=== PATIENT | female | born 1980 | race African-American/Black ===

== ENCOUNTER 2016-07-17 13:14 | Emergency (ER) | payer MEDICAID ==
[~2016-07-17] VITALS: Ht 167.6 cm; Wt 62.5 kg
[2016-07-17] MEDS ORDERED: LIDOCAINE 1%, 20ML ONE (15:29)
[2016-07-17] MEDS ORDERED: LIDOCAINE 1%, 20ML INFIL ONE (15:30)
[2016-07-17] MEDS ORDERED: HYDROcodone/APAP 5/325 TABLET PO ONE (17:00)
[2016-07-17] MEDS ORDERED: HYDROcodone/APAP 5/325 TABLET ONE (17:15)
[2016-07-17 17:39] VITALS: BP 122/80
[2016-07-17 18:25] LABS: HIV 1&2 ANTIBODY SCREEN Nonreactive (Nonreactive); HIV-1 p24 ANTIGEN Nonreactive (Nonreactive)
[2016-07-17 18:46] LABS: HEP B SURF. AB 76.7 mIU/mL (0.0-10.0)
[2016-07-17 19:25] LABS: HEPATITIS C VIRUS ANTIBODY Nonreactive (Nonreactive)
== END 2016-07-17 17:42 | disposition home or self-care (01) ==
LOC: ED 16:30
DX: K02.9 Dental caries, unspecified (principal)
CPT/HCPCS: 36415; 86703; 86705; 86706; 86803; 87340; 87899; 99284; G0435

== ENCOUNTER 2016-08-22 20:05 | Emergency (ER) | payer MEDICAID ==
[~2016-08-22] VITALS: Ht 167.6 cm; Wt 61.2 kg
[2016-08-22 20:09] VITALS: BP 122/80
== END 2016-08-22 22:16 | disposition home or self-care (01) ==
LOC: ED 22:10
DX: I80.01 Phlebitis and thrombophlebitis of superficial vessels of right lower extremity (principal); J45.909 Unspecified asthma, uncomplicated; F12.10 Cannabis abuse, uncomplicated
CPT/HCPCS: 99284

== ENCOUNTER 2017-10-04 09:15 | Emergency (ER) | payer OTHER, MEDICAID ==
[~2017-10-04] VITALS: Ht 167.6 cm; Wt 63.0 kg
[2017-10-04] MEDS ORDERED: HYDROmorphone 1 MG/ML, 1ML IV ONE ×2 (10:00→12:00)
[2017-10-04] MEDS ORDERED: ONDANSETRON 2MG/ML, 2ML IVPush ONE (10:00)
[2017-10-04 10:28] LABS: ALANINE AMINOTRANSFERASE 21 U/L (12-78); ALBUMIN 3.8 g/dL (3.4-5.0); ANION GAP 6 mmol/L (5-15); CALCIUM 8.5 mg/dL (8.5-10.1); CHLORIDE 110 mmol/L (98-107)
[2017-10-04 10:32] LABS: ALKALINE PHOSPHATASE 76 U/L (45-117); BILIRUBIN,TOTAL 0.5 mg/dL (0.2-1.0); TOTAL PROTEIN 7.7 g/dL (6.4-8.2)
[2017-10-04] MEDS ORDERED: ONDANSETRON 2MG/ML, 2ML ONE (10:32)
[2017-10-04] MEDS ORDERED: HYDROmorphone 2 MG/ML, 1ML ONE ×2 (10:32→11:31)
[2017-10-04 10:45] LABS: MICROSCOPIC AUTO
[2017-10-04 10:46] LABS: CULTURE INDICATED? NO
[2017-10-04 10:53] LABS: BASOPHILS # (AUTO) 0.02 x10^3/uL (0-0.1); BASOPHILS % (AUTO) 0 % (0-1); EOSINOPHILS # (AUTO) 0.11 x10^3/uL (0-0.4); EOSINOPHILS % (AUTO) 1 % (1-7); LYMPHOCYTES # (AUTO) 1.36 x10^3/uL (1-3.4); LYMPHOCYTES % (AUTO) 11 % (22-44); MD NO; MEAN CORPUSCULAR HEMOGLOBIN 27.4 pg (27.0-34.8); MEAN CORPUSCULAR HGB CONC 33.6 g/dL (32.4-35.8); MEAN CORPUSCULAR VOLUME 81.5 fL (80-100); MEAN PLATELET VOLUME 7.7 fL (7.4-10.4); MONOCYTES # (AUTO) 0.88 x10^3/uL (0.2-0.8); MONOCYTES % (AUTO) 7 % (2-9); NEUTROPHILS # (AUTO) 9.84 x10^3/uL (1.8-6.8); NEUTROPHILS % (AUTO) 81 % (42-75); PLATELET COUNT 293 x10^3/uL (130-400); RED BLOOD COUNT 4.43 x10^6/uL (3.82-5.3); RED CELL DISTRIBUTION WIDTH 18.6 % (9.6-15.2)
[2017-10-04] MEDS ORDERED: KETOROLAC 30 MG/1 ML ONE (11:30)
[2017-10-04 11:35] VITALS: BP 116/75
[2017-10-04] MEDS ORDERED: KETOROLAC 30 MG/1 ML IV ONE (12:00)
== END 2017-10-04 12:35 | disposition home or self-care (01) ==
LOC: ED 12:15
DX: R10.2 Pelvic and perineal pain (principal); J45.909 Unspecified asthma, uncomplicated
CPT/HCPCS: 36415; 74177; 76830; 80053; 81001; 84702; 85025; 96374; 96375; 96376; 99285; J1170; J1885; J2405

== ENCOUNTER 2020-10-31 20:02 | Emergency (ER) | payer MEDICAID, OTHER ==
[~2020-10-31] VITALS: Ht 170.2 cm; Wt 71.6 kg
[2020-10-31 20:17] VITALS: BP 137/106
[2020-10-31 20:52] LABS: BASOPHILS % (AUTO) 1 % (0-1); EOSINOPHILS % (AUTO) 0 % (1-7); LYMPHOCYTES % (AUTO) 39 % (22-44); MEAN CORPUSCULAR HEMOGLOBIN 26.8 pg (27.0-34.8); MEAN CORPUSCULAR HGB CONC 33.2 g/dL (32.4-35.8); MEAN PLATELET VOLUME 7.2 fL (7.4-10.4); MONOCYTES % (AUTO) 15 % (2-9); NEUTROPHILS % (AUTO) 46 % (42-75); PLATELET COUNT 231 x10^3/uL (130-400); RED CELL DISTRIBUTION WIDTH 18.1 % (9.6-15.2)
[2020-10-31 21:04] LABS: ALBUMIN 3.4 g/dL (3.4-5.0); ANION GAP 10 mmol/L (5-15); CALCIUM 8.8 mg/dL (8.5-10.1); CHLORIDE 102 mmol/L (98-107); CREATININE 1.02 mg/dL (0.55-1.02)
--- NOTE | 2020-10-31 21:16 | NUR ---
COVID [facility] SENT TO LAB
== END 2020-10-31 23:27 | disposition left against medical advice (07) ==
LOC: ED 23:15
DX: U07.1 COVID-19 (principal); R10.9 Unspecified abdominal pain
CPT/HCPCS: 36415; 80048; 82040; 84703; 85025; 99283; U0003; U0005